=== PATIENT | male | born 1960 | race Caucasian/White ===

== ENCOUNTER → 2018-07-24 | Outpatient (CLI) | payer BC ==
--- NOTE | 2018-07-24 14:38 | US ---
EXAMINATION TYPE: US scrotum with doppler. TECHNIQUE: Grayscale and color Doppler Duplex imaging performed of the scrotum. DATE OF EXAM: 07/24/2018 COMPARISON: NONE CLINICAL HISTORY: 57-year-old male N50.3 CYST OF EPIDIDYMIS, STAT. Pain in left testicle x3 weeks. Findings: EXAM MEASUREMENTS: TESTICLES: Right Testicle: 3.4 x 1.9 x 2.9 cm Left Testicle: 3.8 x 1.6 x 2.4 cm Normal symmetric and homogeneous appearance of the testicles without hyperemia. EPIDIDYMIS HEAD: Right Epididymis: 0.7 cm Left Epididymis: 0.9 cm Doppler performed to assess for testicular vascularity; good bilateral color flow and waveforms are s een. There is no evidence of testicular torsion. Presence of hydroceles: Trace on the right. Presence of varicoceles: Yes, bilaterally IMPRESSION: 1. No sonographic evidence for testicular torsion or epididymoorchitis. 2. Trace hydrocele on the right and bilateral scrotal varicoceles.
== END | disposition home or self-care (01) ==
LOC: RADUSWWP 13:45
PROVIDERS: ATTEND Family Medicine
DX: I86.1 Scrotal varices (principal)
CPT/HCPCS: 76870; 93975

== ENCOUNTER → 2019-07-03 | Outpatient (CLI) | payer OTHER ==
--- NOTE | 2019-07-03 09:20 | US ---
EXAMINATION TYPE: US duplex aorta DATE OF EXAM: 07/03/2019 COMPARISON: NONE CLINICAL HISTORY: Z82.49 FAM HX ISCHEMIC HEART DISEASE. Family hx of AAA, HTN- controlled with meds. Previous smoker. EXAM MEASUREMENTS: Abdominal Aorta: Proximal: 2.0 x 2.2 cm Mid: 1.8 x 1.6 cm Distal: 1.4 x 1.5 cm Bifurcation: Right- 0.7 x 1.0 cm Left- 0.7 x 0.9 cm Limited visualization of bifurcations due to overlying bowel gas No AAA visualized. Plaque visualized. IMPRESSION: Atherosclerosis throughout. No abdominal aortic aneurysm.
== END | disposition home or self-care (01) ==
LOC: RADUSWWP 08:21
PROVIDERS: ATTEND Family Medicine
DX: I70.0 Atherosclerosis of aorta (principal); Z82.49 Family history of ischemic heart disease and other diseases of the circulatory system
CPT/HCPCS: 93979

== ENCOUNTER → 2021-03-20 | Outpatient (CLI) | payer BC | END | disposition home or self-care (01) | LOC: LABWHC1 15:43 | PROVIDERS: ATTEND Ophthalmology Ophthalmic Plastic and Reconstructive Surgery | DX: H02.429 Myogenic ptosis of unspecified eyelid (principal); H53.2 Diplopia | CPT/HCPCS: 36415 ==

== ENCOUNTER → 2021-06-20 | Outpatient (CLI) | payer BC | END | disposition home or self-care (01) | LOC: RADMRIMAIN 10:07 | PROVIDERS: ATTEND Psychiatry & Neurology Neurology | DX: Z53.9 Procedure and treatment not carried out, unspecified reason (principal) ==

== ENCOUNTER 2022-10-07 12:12 | Emergency (ER) | payer BC ==
[2022-10-07 12:35] VITALS: TEMP 98.7
[2022-10-07] MEDS ORDERED: SODIUM CHLORIDE 0.9% 1,000 ML IV STA (13:26)
--- NOTE | 2022-10-07 13:26 | ED ---
Weakness HPI - General Chief complaint: Anxiety Stated complaint: Weakness, chills Time Seen by Provider: 10/07/22 12:56 Source: patient, RN notes reviewed, old records reviewed Mode of arrival: ambulatory Limitations: no limitations - History of Present Illness Initial comments: This is a 61-year-old male who presents with . Patient presents for e valuation regards to a week of not feeling well shaking headedness decreased appetite decreased activity level uncontrolled shaking head appears to be abrupt in onset with no significant provocation factors. Seen by primary care and started on anxiolysis, patient states is not helping has worsening anxiety here in the ER not homicidal or suicidal denies drugs or alcohol MD Complaint: generalized weakness -: minutes(s) Location: generalized Severity: mild, moderate Severity scale (1-10): 4 Quality: tingling, numbness Consistency: intermittent Worsens with: none Context: history of similar Associated Symptoms: confusion, fever/chills, loss of appetite - Related Data Home Medications Medication Instructions Recorded Confirmed Albuterol Sulfate [Albuterol 2 puff INHALATION RT-Q4H PRN 10/07/22 10/07/22 Sulfate Hfa] Ammonium Lactate Lotion 1 applic TOPICAL DAILY 10/07/22 10/07/22 [Lac-Hydrin 12% Lotion] Hydrocortisone Cream 1 applic TOPICAL BID PRN 10/07/22 10/07/22 [Hydrocortisone 2.5% Cream] Losartan Potassium 100 mg PO DAILY 10/07/22 10/07/22 Umeclidinium Brm/Vilanterol Tr 1 puff INHALATION RT-DAILY 10/07/22 10/07/22 [Anoro Ellipta 62.5-25 Mcg INH] Allergies Allergy/AdvReac Type Severity Reaction Status Date / Time No Known Allergies Allergy Verified 10/07/22 16:09 Review of Systems ROS Statement: Those systems with pertinent positive or pertinent negative responses have been documented in the HPI. ROS Other: All systems not noted in ROS Statement are negative. Past Medical History Past Medical History: Hypertension Additional Past Medical History / Comment(s): PT states he was previously treat ed by hypertension currently not on meds, ocular myasthenia gravis History of Any Multi-Drug Resistant Organisms: None Reported Past Surgical History: No Surgical Hx Reported Past Psychological History: No Psychological Hx Reported Smoking Status: Former smoker Past Alcohol Use History: Daily Past Drug Use History: None Reported General Exam Limitations: no limitations General appearance: alert, in no apparent distress, anxious Head exam: Present: atraumatic, normocephalic, normal inspection Eye exam: Present: normal appearance, PERRL, EOMI. Absent: scleral icterus, conjunctival injection, periorbital swelling ENT exam: Present: normal exam, mucous membranes moist Neck exam: Present: normal inspection. Absent: tenderness, meningismus, lymphadenopathy Respiratory exam: Present: normal lung sounds bilaterally. Absent: respiratory distress, wheezes, rales, rhonchi, stridor Cardiovascular Exam: Present: regular rate, normal rhythm, normal heart sounds. Absent: systolic murmur, diastolic murmur, rubs, gallop, clicks GI/Abdominal exam: Present: soft, normal bowel sounds. Absent: distended, tend erness, guarding, rebound, rigid Extremities exam: Present: normal inspection, full ROM, normal capillary refill. Absent: tenderness, pedal edema, joint swelling, calf tenderness Back exam: Present: normal inspection Neurological exam: Present: alert, oriented X3, CN II-XII intact Psychiatric exam: Present: normal affect, normal mood Skin exam: Present: warm, dry, intact, normal color. Absent: rash Course Vital Signs 10/07/22 10/07/22 10/07/22 12:32 12:57 13:00 Temperature 98.7 F Pulse Rate 82 Respiratory 16 Rate Blood Pressure 145/84 152/103 O2 Sat by Pulse 96 97 98 Oximetry 10/07/22 10/07/22 10/07/22 13:10 13:20 13:30 Temperature Pulse Rate 84 72 78 Respiratory 18 15 17 Rate Blood Pressure 162/98 162/98 162/98 O2 Sat by Pulse 98 98 95 Oximetry 10/07/22 10/07/22 10/07/22 13:36 13:40 13:50 Temperature Pulse Rate 72 74 73 Respiratory 18 12 15 Rate Blood Pressure 151/87 151/87 151/87 O2 Sat by Pulse 96 98 96 Oximetry 10/07/22 10/07/22 10/07/22 14:00 14:10 14:20 Temperature Pulse Rate 70 75 69 Respiratory 13 15 13 Rate Blood Pressure 151/87 145/88 145/88 O2 Sat by Pulse 96 96 96 Oximetry 10/07/22 10/07/22 10/07/22 14:30 14:40 14:50 Temperature Pulse Rate 71 71 73 Respiratory 13 13 13 Rate Blood Pressure 145/88 145/93 145/93 O2 Sat by Pulse 97 97 96 Oximetry 10/07/22 16:22 Temperature Pulse Rate 68 Respiratory 16 Rate Blood Pressure 136/86 O2 Sat by Pulse 98 Oximetry - Reevaluation(s) Reevaluation #1: 10/07/22 21:51 Medical records reviewed Reevaluation #2: 10/07/22 21:51 Patient has no change in symptoms here in the ER Reevaluation #3: 10/07/22 21:51 Patient informed results and questions answered Reevaluation #4: 10/07/22 21:51 Was pt. sent in by a medical professional or institution? @ -no Did you speak to anyone other than the patient for history? @ -no Did you review nursing and triage notes? @ -agree Were old charts reviewed? @ -no Differential Diagnosis? @ -prior EKG interpreted by me (3pts min.)? @ -yes X-rays interpreted by me (1pt min.)? @ -yes CT interpreted by me (1pt min.)? @ -no U/S interpreted by me (1pt. min.)? @ -no What testing was considered but not performed? (CT, X-rays, U/S, labs)? Why? @ -no What meds were considered but not given? Why? @ -no Did you discuss the management of the patient with other professionals? @ -no Did you reconcile home meds? @ -no Was smoking cessation discussed for >3mins.? @ -no Was critical care preformed (if so, how long)? @ -no Were there social determinants of health that impacted care today? How? (Homelessness, low income, unemployed, alcoholism, drug addiction, transportation, low edu. Level, literacy, decrease access to med. care, custodial, rehab)? @ -no Was there de-escalation of care discussed even if they declined? (Discuss DNR or withdrawal of care, Hospice)? @ -no What co-morbidities impacted this encounter? (DM, HTN, Smoking, COPD, CAD, Cancer, CVA, Hep., AIDS, mental health diagnosis, sleep apnea, morbid obesity)? @ -no Was patient admitted / discharged? @ -dc Undiagnosed new problem with uncertain prognosis? @ -no Drug Therapy requiring intensive monitoring for toxicity (Heparin, Nitro, Insuli n, Cardizem)? @ -no Were any procedures done? @ -no Diagnosis/symptom? @ -anxiety, weakness Acute, or Chronic, or Acute on Chronic? @ -acute Uncomplicated (without systemic symptoms) or Complicated (systemic symptoms)? @ -uncomplicated Side effects of treatment? @ -none Exacerbation, Progression, or Severe Exacerbation] @ - Poses a threat to life or bodily function? @ -no Reevaluation #5: 10/07/22 21:51 Differential Weakness: Hypoglycemia, shock, sepsis, hyponatremia, anemia, infection, PR, ETOH, adverse medicine reaction, overdose, stroke, this is not meant to be an all-inclusive list. EKG Findings - EKG Comments: EKG Findings:: EKG is sinus rhythm 70 DE 148 QRS 110 QTc 410 - EKG Results: EKG: interpreted by [facility] Medical Decision Making - Medical Decision Making 58 female for anxiety issue. Patient states she's had some episodic anxiety since Tuesday started on new anti-anxiolysis medication without help. Patient has no significant suicidal or homicidal thoughts. Urged to continue medication and can be discharged home - Lab Data Result diagrams: 10/07/22 13:27 10/07/22 13:27 Lab Results 10/07/22 10/07/22 10/07/22 Range/Units 13:27 13:27 13:27 WBC 6.6 (3.8-10.6) k/uL RBC 5.19 (4.30-5.90) m/uL Hgb 16.1 (13.0-17.5) gm/dL Hct 47.6 (39.0-53.0) % MCV 91.8 (80.0-100.0) fL MCH 31.1 (25.0-35.0) pg MCHC 33.8 (31.0-37.0) g/dL RDW 13.0 (11.5-15.5) % Plt Count 247 (150-450) k/uL MPV 7.0 Neutrophils % 66 % Lymphocytes % 26 % Monocytes % 5 % Eosinophils % 1 % Basophils % 0 % Neutrophils # 4.3 (1.3-7.7) k/uL Lymphocytes # 1.7 (1.0-4.8) k/uL Monocytes # 0.4 (0-1.0) k/uL Eosinophils # 0.1 (0-0.7) k/uL Basophils # 0.0 (0-0.2) k/uL PT 10.6 (9.0-12.0) sec INR 1.0 (<1.2) APTT 23.4 (22.0-30.0) sec Sodium 134 L (137-145) mmol/L Potassium 4.4 (3.5-5.1) mmol/L Chloride 100 (98-107) mmol/L Carbon Dioxide 27 (22-30) mmol/L Anion Gap 7 mmol/L BUN 12 (9-20) mg/dL Creatinine 0.58 L (0.66-1.25) mg/dL Est GFR (CKD-EPI)AfAm >90 (>60 ml/min/1.73 sqM) Est GFR (CKD-EPI)NonAf >90 (>60 ml/min/1.73 sqM) Glucose 113 H (74-99) mg/dL Plasma Lactic Acid Kel (0.7-2.0) mmol/L Calcium 9.0 (8.4-10.2) mg/dL Phosphorus 3.2 (2.5-4.5) mg/dL Magnesium 1.9 (1.6-2.3) mg/dL Total Bilirubin 0.8 (0.2-1.3) mg/dL AST 46 (17-59) U/L ALT 25 (4-49) U/L Alkaline Phosphatase 68 (38-126) U/L Troponin I (0.000-0.034) ng/mL Total Protein 6.9 (6.3-8.2) g/dL Albumin 4.1 (3.5-5.0) g/dL Urine Color Urine Appearance (Clear) Urine pH (5.0-8.0) Ur Specific [place] (1.001-1.035) Urine Protein (Negative) Urine Glucose (UA) (Negative) Urine Ketones (Negative) Urine Blood (Negative) Urine Nitrite (Negative) Urine Bilirubin (Negative) Urine Urobilinogen (<2.0) mg/dL Ur Leukocyte Esterase (Negative) 10/07/22 10/07/22 10/07/22 Range/Units 13:27 13:27 14:31 WBC (3.8-10.6) k/uL RBC (4.30-5.90) m/uL Hgb (13.0-17.5) gm/dL Hct (39.0-53.0) % MCV (80.0-100.0) fL MCH (25.0-35.0) pg MCHC (31.0-37.0) g/dL RDW (11.5-15.5) % Plt Count (150-450) k/uL MPV Neutrophils % % Lymphocytes % % Monocytes % % Eosinophils % % Basophils % % Neutrophils # (1.3-7.7) k/uL Lymphocytes # (1.0-4.8) k/uL Monocytes # (0-1.0) k/uL Eosinophils # (0-0.7) k/uL Basophils # (0-0.2) k/uL PT (9.0-12.0) sec INR (<1.2) APTT (22.0-30.0) sec Sodium (137-145) mmol/L Potassium (3.5-5.1) mmol/L Chloride (98-107) mmol/L Carbon Dioxide (22-30) mmol/L Anion Gap mmol/L BUN (9-20) mg/dL Creatinine (0.66-1.25) mg/dL Est GFR (CKD-EPI)AfAm (>60 ml/min/1.73 sqM) Est GFR (CKD-EPI)NonAf (>60 ml/min/1.73 sqM) Glucose (74-99) mg/dL Plasma Lactic Acid Kel 1.4 (0.7-2.0) mmol/L Calcium (8.4-10.2) mg/dL Phosphorus (2.5-4.5) mg/dL Magnesium (1.6-2.3) mg/dL Total Bilirubin (0.2-1.3) mg/dL AST (17-59) U/L ALT (4-49) U/L Alkaline Phosphatase (38-126) U/L Troponin I <0.012 (0.000-0.034) ng/mL Total Protein (6.3-8.2) g/dL Albumin (3.5-5.0) g/dL Urine Color Yellow Urine Appearance Clear (Clear) Urine pH 6.5 (5.0-8.0) Ur Specific [place] 1.011 (1.001-1.035) Urine Protein Negative (Negative) Urine Glucose (UA) Negative (Negative) Urine Ketones Negative (Negative) Urine Blood Negative (Negative) Urine Nitrite Negative (Negative) Urine Bilirubin Negative (Negative) Urine Urobilinogen 2.0 (<2.0) mg/dL Ur Leukocyte Esterase Negative (Negative) - Radiology Data Radiology results: report reviewed (S x-rays negative for acute disease), image reviewed Disposition Clinical Impression: Acute anxiety, Hyperventilation Disposition: HOME SELF-CARE Condition: Fair Instructions (If sedation given, give patient instructions): Generalized Anxiety Disorder (ED) Is patient prescribed a controlled substance at d/c from ED?: No Referrals: Rowdy Johnson MD [Primary Care Provider] - 1-2 days Time of Disposition: 15:00
[2022-10-07 13:43] LABS: Basophils % (A) 0 %; Eosinophils # (A) 0.1 k/uL (0-0.7); Eosinophils % (A) 1 %; HCT 47.6 % (39.0-53.0); HGB 16.1 gm/dL (13.0-17.5); Lymphocytes # (A) 1.7 k/uL (1.0-4.8); Lymphocytes % (A) 26 %; MCH 31.1 pg (25.0-35.0); MCHC 33.8 g/dL (31.0-37.0); MCV 91.8 fL (80.0-100.0); Monocytes # (A) 0.4 k/uL (0-1.0); Monocytes % (A) 5 %; Neutrophils # (A) 4.3 k/uL (1.3-7.7); Neutrophils % (A) 66 %; Platelet Count 247 k/uL (150-450); RBC 5.19 m/uL (4.30-5.90); WBC 6.6 k/uL (3.8-10.6)
[2022-10-07 14:03] LABS: Partial Thromboplastin Time 23.4 sec (22.0-30.0); Prothrombin Time 10.6 sec (9.0-12.0)
--- NOTE | 2022-10-07 14:05 | XR ---
EXAMINATION TYPE: XR chest 1V portable DATE OF EXAM: 10/07/2022 COMPARISON: Chest CT August 07, 2022. HISTORY: Weakness and chills TECHNIQUE: Single frontal view of the chest is obtained. FINDINGS: There is background chronic emphysematous change with left midlung linear scarring redemon strated. There is no new suspicious focal air space opacity, pleural effusion, or pneumothorax seen. The cardiac silhouette size remains within normal limits. The osseous structures are intact. IMPRESSION: Chronic emphysematous changes without suspicious acute pulmonary process.
[2022-10-07 14:28] LABS: ALT 25 U/L (4-49); AST 46 U/L (17-59); African American GFR (CKD) >90 (>60 ml/min/1.73 sqM); Albumin 4.1 g/dL (3.5-5.0); Alkaline Phosphatase 68 U/L (38-126); Anion Gap 7 mmol/L; Blood Urea Nitrogen 12 mg/dL (9-20); Carbon Dioxide 27 mmol/L (22-30); Chloride 100 mmol/L (98-107); Glucose 113 mg/dL (74-99); Magnesium 1.9 mg/dL (1.6-2.3); Non-African American GFR(CKD) >90 (>60 ml/min/1.73 sqM); Phosphorus 3.2 mg/dL (2.5-4.5); Potassium 4.4 mmol/L (3.5-5.1); Sodium 134 mmol/L (137-145); Total Bilirubin 0.8 mg/dL (0.2-1.3); Total Protein 6.9 g/dL (6.3-8.2)
[2022-10-07 14:51] LABS: Appearance,Urine Clear (Clear); Bilirubin,Urine Negative (Negative); Blood,Urine Negative (Negative); Color,Urine Yellow; Glucose,Urine (UA) Negative (Negative); Ketones,Urine Negative (Negative); Leukocyte Esterase,Urine Negative (Negative); Nitrite,Urine Negative (Negative); PH, Urine 6.5 (5.0-8.0); Protein,Urine Negative (Negative); Specific Gravity,Urine 1.011 (1.001-1.035)
[2022-10-07 16:23] VITALS: BP 136/86; PULSE 68; RESP 16
== END 2022-10-07 16:23 | disposition home or self-care (01) ==
LOC: EC 12:12
DX: F41.9 Anxiety disorder, unspecified (principal); R06.4 Hyperventilation; I10 Essential (primary) hypertension; Z87.891 Personal history of nicotine dependence; Z79.899 Other long term (current) drug therapy
CPT/HCPCS: 36415; 71045; 80053; 81003; 83605; 83735; 84100; 84484; 85025; 85610; 85730; 93005; 99284

== ENCOUNTER → 2023-10-18 | Outpatient (CLI) | payer BC ==
[2023-10-18 19:19] LABS: BUN/Creat Ratio 16.86 Ratio (12.00-20.00); Blood Urea Nitrogen 11.8 mg/dL (9.0-27.0); Calcium 9.3 mg/dL (8.7-10.3); Carbon Dioxide 23.8 mmol/L (21.6-31.8); Chloride 103 mmol/L (96-109); Glucose 101 mg/dL (70-110); Potassium 4.9 mmol/L (3.5-5.5); Sodium 139 mmol/L (135-145)
== END | disposition home or self-care (01) ==
LOC: LABWHC1 10:55
PROVIDERS: ATTEND Psychiatry & Neurology Neurology
DX: G70.00 Myasthenia gravis without (acute) exacerbation (principal); Z79.899 Other long term (current) drug therapy
CPT/HCPCS: 36415; 80048; 82784

== ENCOUNTER → 2024-08-24 | Outpatient (CLI) | payer BC ==
--- NOTE | 2024-08-24 12:25 | US ---
EXAMINATION TYPE: US carotid duplex BILAT DATE OF EXAM: 08/24/2024 COMPARISON: NONE CLINICAL INDICATION: Male, 63 years old with history of I65.29 OCCLUSION AND STENOSIS OF UNSPECIFIED CAROT; Additional History: .... TECHNIQUE: Grayscale, color Doppler and spectral Doppler evaluation of the bilateral carotid systems and vertebral arteries. Indirect Doppler criteria was utilized. FINDINGS: EXAM MEASUREMENTS: RIGHT: Peak Systolic Velocity (PSV) cm/sec ----- Right CCA: 69.7 ----- Right ICA: 80.8 ----- Right ECA: 85.8 ICA/CCA ratio: 1.2 RIGHT: End Diastole cm/sec ----- Right CCA: 20.5 ----- Right ICA: 27.1 ----- Right ECA: 7.8 LEFT: Peak Systolic Velocity (PSV) cm/sec ----- Left CCA: 61.6 ----- Left ICA: 89.1 ----- Left ECA: 82.2 ICA/CCA ratio: 1.5 LEFT: End Diastole cm/sec ----- Left CCA: 15.4 ----- Left ICA: 35.8 ----- Left ECA: 16.5 VERTEBRALS (direction of flow): Right Vertebral: Antegrade Left Vertebral: Antegrade Rhythm: Normal VIDEO ENGINEER NOTES: Plaque seen within bulbs bilaterally No elevated velocities or significant stenosis seen bilaterally Color Doppler imaging shows patency with blood flow throughout the carotid artery. Spectral waveforms are within normal limits. IMPRESSION: No evidence for hemodynamically significant stenosis. Criteria for Assigning % of Stenosis / Diameter reduction (Estimation based on the indirect measurements of the internal carotid artery velocities (ICA PSV). 1. Normal (no stenosis)=ICA PSV < 125 cm/s: ratio < 2.0: ICA EDV<40 cm/s. 2. Less than 50% stenosis=ICA PSV < 125 cm/s: ratio < 2.0: ICA EDV<40 cm/s. 3. 50 to 69% stenosis=ICA PSV of 125 to 230 cm/s: ration 2.0 ? 4.0: ICA EDV 40-100 cm/s. 4. Greater than 70% stenosis to near occlusion= ICA PSV > 230 cm/s: ratio > 4.0: ICA EDV > 100 cm/s. 5. Near occlusion= ICA PSV velocities may be low or undetectable: variable ratio and ICA EDV. 6. Total occlusion=unable to detect flow. [facility], , 08/24/2024 12:23 PM
== END | disposition home or self-care (01) ==
LOC: RADUSWWP 07:50
PROVIDERS: ATTEND Family Medicine
DX: I65.23 Occlusion and stenosis of bilateral carotid arteries (principal)
CPT/HCPCS: 93880

== ENCOUNTER → 2024-09-05 | Outpatient (CLI) | payer BC ==
--- NOTE | 2024-09-05 11:09 | CT ---
EXAMINATION TYPE: CT chest wo con DATE OF EXAM: 09/05/2024 10:38 AM COMPARISON: 08/07/2022 CLINICAL INDICATION: Male, 63 years old with history of I71.20 ATHEROSC ARTERIES; PHH, ANEURYSM OF TH ORACIC AORTA TECHNIQUE: Multiple axial images were obtained through the chest. Sagittal and coronal reformats were created for review. MIP was performed on a separate workstation. Contrast used: mL of (None if empty) Oral contrast used: (None if empty) CT DLP: 196.10 mGycm, Automated exposure control for dose reduction was used. FINDINGS: LUNGS/ PLEURA: No focal consolidation, pneumothorax or pleural effusion. Paraseptal and centrilobular emphysema. Few scattered thin-walled air cyst present. Scattered areas of some architectural distort ion/scarring likely due to emphysema. AIRWAY: Patent and unremarkable. HEART: Size within normal limits. No significant coronary artery calcifications. MEDIASTINUM: No gross evidence of adenopathy. VASCULATURE: No aortic aneurysm. Ascending thoracic aorta ectasia up to 4V millimeters. MUSCULOSKELETAL: Mild disc degeneration changes are present throughout the thoracolumbar spine second keenan to osteophyte formation and facet joint arthropathy., remote appearing left-sided rib fractures. Scattered disc space narrowing osteophyte formation facet joint arthropathy and Schmorl's nodes prese nt. Slight wedging of the T7 vertebral body 25% height loss. No significant spinal canal stenosis. SOFT TISSUES/LYMPH NODES: Unremarkable. LOWER NECK: No significant findings. UPPER ABDOMEN: Left renal cortical probable cyst. Stable from prior. No follow-up recommended. IMPRESSION: 1. 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 Findings similar to prior. No evidence for aneurysm . 2. Moderate emphysema changes. 3. Remote appearing left-sided rib fractures. 4. Moderate degeneration changes spine. 5. T7 vertebral body wedge compression deformity 25% height loss anteriorly. No significant retropul olivia or spinal canal stenosis. Follow up recommendations for incidental pulmonary nodules, if there are any, are per [employer] or [employer]. https://radiopaedia.org/articles/suqzjthggt-uesheor-[email or web address]-[email or web address]?lang=us [facility], , 09/05/2024 11:07 AM
== END | disposition home or self-care (01) ==
LOC: RADCTMAIN 10:18
PROVIDERS: ATTEND Family Medicine
DX: J43.9 Emphysema, unspecified (principal); M48.54XA Collapsed vertebra, not elsewhere classified, thoracic region, initial encounter for fracture; I77.810 Thoracic aortic ectasia
CPT/HCPCS: 71250